=== PATIENT | male | born 2000 | race Hispanic/Latino ===

== ENCOUNTER 2024-08-25 20:53 | Emergency (ER) | payer BC ==
[~2024-08-25] VITALS: Ht 182.9 cm; Wt 87.1 kg
[2024-08-25 21:08] VITALS: RESP 18; TEMP 98.1
[2024-08-25 21:38] LABS: INFLUENZA A AG NEGATIVE (NEGATIVE)
[2024-08-25 21:39] LABS: CORONAVIRUS COVID-19 AG NEGATIVE (NEGATIVE); INFLUENZA B AG NEGATIVE (NEGATIVE)
[2024-08-25] MEDS: SODIUM CHLORIDE 0.9% 1000ML 1,000 ML IV ONE (21:39)
[2024-08-25 21:57] LABS: ALBUMIN 3.7 g/dL (3.5-5.0); ALBUMIN/GLOBULIN RATIO 1.1 (0.8-2.0); ANION GAP 14.8 mmol/L (8-16); BILIRUBIN,TOTAL 0.6 mg/dL (0.2-1.2); CALCIUM 9.1 mg/dL (8.4-10.2); POTASSIUM 3.8 mmol/L (3.5-5.1); TOTAL PROTEIN 7.2 g/dL (6.5-8.1)
[2024-08-25 21:59] LABS: BASOPHILS % 0.1 % (0.0-1.0); EOSINOPHILS % 0.4 % (0.0-6.0); HEMATOCRIT 44.7 % (38.2-49.6); HEMOGLOBIN 15.4 g/dL (14.0-18.0); LYMPHOCYTES # (AUTO) 1.4 (1.0-3.2); LYMPHOCYTES % 16.8 % (18.0-39.1); MEAN CORPUSCULAR HEMOGLOBIN 29.4 pg (28-32); MEAN CORPUSCULAR HGB CONC 34.5 g/dL (31-35); MEAN CORPUSCULAR VOLUME 85.5 fL (81-99); MONOCYTES # (AUTO) 0.8 (0.2-0.8); MONOCYTES % 8.9 % (4.4-11.3); NEUTROPHILS # (AUTO) 6.2 (2.1-6.9); NEUTROPHILS % 73.4 % (38.7-80.0); PLATELET COUNT 204 x10e3/uL (140-360); RED BLOOD COUNT 5.23 x10e6/uL (4.3-5.7); RED CELL DISTRIBUTION WIDTH 12.7 % (11.7-14.4); WHITE BLOOD COUNT 8.43 x10e3/uL (4.8-10.8)
[2024-08-25] MEDS: DICYCLOMINE HCL 20 MG/2 ML VIAL IM ONE (22:53)
[2024-08-25 23:15] VITALS: PULSE 85
[2024-08-25] MEDS ORDERED: ONDANSETRON ODT4 MG SL (23:20)
[2024-08-25] MEDS ORDERED: DICYCLOMINE HCL20 MG PO (23:20)
[2024-08-25 23:54] VITALS: BP 130/93; O2SAT 97
[2024-08-26 04:14] LABS: LYMPHOCYTES % (MANUAL) 15 % (19-48); MONOCYTES % (MANUAL) 7 % (3.4-9.0); NEUTROPHILS % (MANUAL) 78 % (40-74)
[2024-08-26 04:17] LABS: PLATELET ESTIMATE ADEQUATE; PLATELET MORPHOLOGY COMMENT NORMAL; RBC MORPHOLOGY COMMENT NORMAL
== END 2024-08-25 23:33 | disposition home or self-care (01) ==
LOC: ER 21:10
DX: R19.7 Diarrhea, unspecified (principal); B34.9 Viral infection, unspecified; R05.9 Cough, unspecified; R11.0 Nausea; Z11.52 Encounter for screening for COVID-19
CPT/HCPCS: 36415; 71045; 80053; 85025; 87428; 99284; J0500; J7030